=== PATIENT | female | born 1985 | race African-American/Black ===

== ENCOUNTER → 2016-12-18 | Outpatient (REF) | payer OTHER | LOC: M LAB 10:29 | PROVIDERS: ATTEND Nurse Practitioner Adult Health | DX: Z02.1 Encounter for pre-employment examination (principal) ==

== ENCOUNTER 2016-12-20 19:33 | Outpatient (CLI) | payer OTHER, SELFPAY ==
[~2016-12-20] VITALS: Ht 165.1 cm; Wt 70.0 kg
--- NOTE | 2016-12-20 20:40 | IPNPDOC ---
Text Note Date of Service The patient was seen on 12/20/16. NOTE Subjective: Pt is a 31yo with a coombs IUP at 26w2d who presents to triage for abdominal discomfort. She states the pain has been occurring all day, located in her upper abdomen. Sharp, comes and goes. No nausea/vomiting, no diarrhea. ROS: Admits: Gross movement, good oral hydration Denies: Vaginal bleeding/discharge/loss of fluid, fever, N/V, dysuria, urinary urgency, flank pain, sexual activity, abdominal trauma, diarrhea, constipation Objective: Vitals wnl, afebrile NST: FHT 140 with moderate variability, pos accels, neg decels. Reassuring for gestational age. [place]: 1 ctx, no uterine irritability Physical Exam: General: WDWN gravid female in NAD Mental : AAOx3 Abdominal: Gravid abdomen without guarding or tenderness, non-distended Extremity: no edema in LE bilaterally (SCE chaperoned by RN) SCE: closed/long/high Assessment: Pt is a 31yo with a coombs IUP at 26w2d with abdominal pain likely GI in origin (flatus) without signs of an acute abdomen or preeclampsia. No signs of abdominal pathology or infection. No evidence of labor. Reassuring NST with 1ctx, no uterine irritability and SCE closed/long/high. Plan: -pts questions and concerns addressed and answered- labor precautions discussed with patient. -f/u at next scheduled OB appt -Tylenol 325mg 2 tabs po q6h prn pain -encouraged adequate hydration and good nutrition, avoiding foods that cause flatus -Return precautions given for bleeding, fluid loss, contractions, decreased movement, fever, and worsening or spreading of abdominal pain. -[facility] reviewed Dr. Eladio Gupta MD [place] OBPATO VS,Donald, I+O VSDonald, I+O Vital Signs Date Time Temp Pulse Resp B/P Pulse Ox O2 Delivery O2 Flow Rate FiO2 12/20/16 19:55 97.8 69 20 Room Air ELADIO GUPTA MD Dec 20, 2016 20:40
== END 2016-12-20 20:35 | disposition home or self-care (01) ==
LOC: M LDO 19:33
PROVIDERS: ATTEND Obstetrics & Gynecology
DX: O26.892 Other specified pregnancy related conditions, second trimester (principal); Z3A.26 26 weeks gestation of pregnancy

== ENCOUNTER 2017-02-13 20:44 | Outpatient (CLI) | payer OTHER ==
[~2017-02-13] VITALS: Ht 165.1 cm; Wt 73.0 kg
[2017-02-13 21:02] VITALS: BP 115/61
--- NOTE | 2017-02-14 08:29 | HPE ---
DATE OF ADMISSION: 31-year-old 6, para 3, abortio 2, LMP 06/06/2016, EDC 03/27/2017 at 34 weeks with a history of Melbeta [place] for 2 days. PAST HISTORY: In 2004 at 20 weeks had a dilatation and evacuation (D E) and required 2 units of blood. 2009 at 40 weeks spontaneous vaginal delivery female induction of labor 8 pounds 6 ounces. 2013 at 37 and 5 weeks spontaneous vaginal delivery female 8 pounds 1 ounce. 2010 at 11 weeks spontaneous with dilatation and curettage (D C). 2014 at 38 weeks spontaneous vaginal delivery female 6 pounds 11 ounces. Labs show A positive, HIV negative, hepatitis negative. RPR negative, rubella immune. Varicella by history. Pap normal. Urine negative. Gonorrhea and chlamydia are negative. 1-hour glucose was 85. Blood pressure today is 115/61, respirations 18, pulse is 101 and temperature 98.6. Urine is 1015, pH 6, +1 ketones, +1 leukocytes, and trace of protein. On examination she has a category 1 strip with 15 x 15 accelerations, occasional Uriel [place], one contraction in the last 20 minutes, mild in intensity and the resting tone was normal. On pelvic examination no fluid loss, no bleeding, posterior, not dilated, high, thick and closed. The rest of the examination is unremarkable. She is normocephalic, atraumatic. Neck: Full range of motion. Pupils equal and reactive to light. Distal pulses are symmetric. No evidence of deep venous thrombosis (DVT), pulmonary embolism (PE) or superficial phlebitis. Chest is clear bilaterally to bases. No wheezes or rhonchi. Uterus is nontender. Four quadrant bowel sounds and appropriate symphysis fundus height. She has no rashes, lesions or pruritus. No arthralgia, myalgia. No cough, wheeze, shortness of breath or dyspnea on exertion. She has no chest pain. She is not bleeding. Neuro complete. No incontinency, urgency, or frequency. No nausea, vomiting, diarrhea, or constipation. No diabetic issues. GYNECOLOGY HISTORY: Unremarkable. PAST MEDICAL HISTORY: Unremarkable. SURGICAL HISTORY: Dilatation and curettage (D C) times two. FAMILY HISTORY: Noncontributory. She does not smoke or drink, abuse drugs. She is and her is deployed. She comes with her three children with a category 1 strip and not dilated. Precautions were given including increasing her fluid level because of +1 ketones. Urine was sent for culture and sensitivity (C S) as well as micro and if culture positive we will call her back in 48 hours, if culture negative we will not call her back. The patient understands what she needs to do as regarding contractions, fluid increase, and we discussed kick chart, premature rupture of membranes, bleeding and contractions 5-7 minutes lasting 30-60 seconds. She does not have a significant history of labor. The patient was discharged undelivered. Followup next week in the office for her regular appointment. cc: *Randal SINGH
== END 2017-02-13 21:45 | disposition home or self-care (01) ==
LOC: M LDO 20:44
PROVIDERS: ATTEND Obstetrics & Gynecology
DX: O62.0 Primary inadequate contractions (principal); Z3A.34 34 weeks gestation of pregnancy; O09.293 Supervision of pregnancy with other poor reproductive or obstetric history, third trimester

== ENCOUNTER 2017-02-19 00:31 | Outpatient (CLI) | payer OTHER ==
[~2017-02-19] VITALS: Ht 165.1 cm; Wt 75.0 kg
== END 2017-02-19 01:39 | disposition home or self-care (01) ==
LOC: M LDO 00:31
PROVIDERS: ATTEND Obstetrics & Gynecology
DX: O62.0 Primary inadequate contractions (principal); Z3A.34 34 weeks gestation of pregnancy

== ENCOUNTER 2017-02-24 18:17 | Inpatient (IN) | payer OTHER ==
[~2017-02-24] VITALS: Ht 165.1 cm; Wt 72.0 kg
[2017-02-24] MEDS ORDERED: PRENTAB9 PO (18:26)
[2017-02-24 18:30] VITALS: BP 130/69
[2017-02-24] MEDS ORDERED: LACTATED RINGER'S 1000 ML IV STA (21:14)
[2017-02-24] MEDS ORDERED: AMPICILLIN SOD 2 GM in D5W MINI-BAG PLUS 100 ML IV STA (21:14)
[2017-02-24] MEDS: BETAMETHASONE SOLUSPAN 6MG/ML INJ 5ML (J0702) IM SCH (21:50)
[2017-02-24] MEDS: LR 1,000 ML IV SCH (21:50)
[2017-02-24 23:26] LABS: MEAN CORPUSCULAR HEMOGLOBIN 26.6 pg (27.0-33.0); MEAN CORPUSCULAR HGB CONC 32.7 g/dl (32.0-36.5); MEAN CORPUSCULAR VOLUME 81.4 fl (80.0-96.0); RED CELL DISTRIBUTION WIDTH 13.8 % (11.5-14.5); WHITE BLOOD COUNT 7.8 K/mm3 (4.0-10.0)
--- NOTE | 2017-02-24 23:34 | HPEPDOC ---
Obstetrical History & Physical General Date of Admission Feb 24, 2017 at 23:13 History of Present Illness Kelsey is a 32yo with SIUP at 35w4d who presents tonight with regular ctx. She notes she had quick labors in the past and was concerned that she is cristiano. No LOF, no VB. Feels good movement. On initial exam, SCE 0/50/-3 by CHRISTO Rainey. On re-check by me 2hr later, 3-4/50/- 2. Then, on re-check again 2hr later, 3-4/75/-2. PMhx: constipation, hx of PP depression for which she took medications for a short time, sensitivity to amoxicillin (HOLBROOK/vomiting- not a true allergy) course: 2 intra-cardiac echogenic foci on 20wk anatomy scan with normal [place] screen (having a male) Chief Complaint: Contractions, pre-term Information Provided By: Patient Care Care: Good Care Dating Final EDC: Mar 27, 2017 Final EDC by: 1st trimester ([place]) Antepartum Course Diagnos(e)s 2 intra-cardiac echogenic foci on 20wk anatomy scan with normal [place] screen ( having a male) Height (inches): 65 Pre- weight (lbs.): 140 Admission Weight (lbs.): 162 Change in Weight (lbs.): 22 Past Medical History Past Obstetrical History : Past Obstetrical History: Multigravida Date of Delivery: Mar 28, 2010 (Also December 2013 and Jul 2015- all term deliveries) Gestation: 40 (also 37.5wk and 38wk in addition to two early miscarriages, both treated with D&C. Had hemorrhage with D&C in 2004 with transfusion of 2u pRBC) Type of Delivery: Spontaneous Vaginal Del. Sex of Infant: Female (all 3 children are female) Complications: No [employer] History: Spontaneous (x2, both treated with D&C), History of STD ( chlamydia as a teenager) Past Medical History Medical History Constipation, hx of PP depression for which she took medications for a short time, sensitivity to amoxicillin (HOLBROOK/vomiting- not a true allergy) Surgical History: Dilatation and Curettage, [place] teeth Family History Significant Family History: Diabetes Social History Marital Status: Family situation: Spouse/partner deployed (Currently in [place] since November) Psychosocial History: Depression ( depression treated with medication for short duration) * Smoker: non-smoker Alcohol: Denies Drugs: denies Imunizations Tdap status: current Influenza Status: declined Allergies Coded Allergies: No Known Allergies (Unverified , 02/13/17) Medications Scheduled Multivitamins/ ( 27-0.8 mg) 1 Tab Tab, 1 TAB PO DAILY Physical Examination Physical Examination GENERAL: Alert and oriented times three. ABDOMEN: Gravid and non-tender to touch. FETUS: Is vertex (VTX) by sterile vaginal examination (SVE) EXTREMITIES: No edema of BLE Vital Signs/I&O Vital Signs Date Time Temp Pulse Resp B/P (MAP) Pulse Ox O2 Delivery O2 Flow Rate FiO2 02/24/17 18:30 99.1 77 18 130/69 (89) Pertinent Laboratoy Data Blood Type: A+ RBC Antibody Screen: Negative HIV: Negative Hepatitis B: Negative Hepatitis C: Unknown Rapid Plasma Reagin: Nonreactive Rubella: Immune Varicella: Immune Chlamydia/Gonorrhea: Negative Group B Streptococcus: Unknown Cystic Fibrosis: Negative Glucose Tolerance Test: 85 Anatomy Ultrasound Ultrasound Date: Nov 11, 2016 Placenta Location: Posterior Normal Anatomy: Yes (Noted 2 echogenic foci in heart, normal [place]) Placenta Previa: No Steroid Therapy Steroid Therapy: Yes Date #1: Feb 24, 2017 Vaginal Examination Dilation: 4 cm Effacement: 75% Station: -2 Cervical Consistency: Soft Cervical Position: Middle Presentation: Cephalic presentation Assessment Variability: Moderate Accelerations: Positive Decelerations: None Tocometer Contractions: Yes Frequency: regular, every 2-5 min. Duration: greater than 60 seconds Assessment/Plan Assessment Kelsey is a 32yo with SIUP at 35w4d in latent labor. On initial exam, SCE 0/50/-3 by CHRISTO Rainey. On re-check by me 2hr later, 3-4/50/-2. Then, on re-check again 2hr later, 3-4/75/-2. Cat I FHRT, toco showed ctx q2- 3min then after IVF slowed to q5min. Vitals wnl. Cephalic by SCE. No ROM. PMhx: constipation, hx of PP depression for which she took medications for a short time, sensitivity to amoxicillin (HOLBROOK/vomiting- not a true allergy) course: 2 intra-cardiac echogenic foci on 20wk anatomy scan with normal [place] screen (having a male) Plan Admit and orient. [employer] and consent. Diet: ok for regular meal now, then clear liquids Betamethasone 12mg IM now Group B Streptococcus (GBS) unknown and , so ampicillin per protocol 2/ Labs and intravenous (IV) per unit protocol. Lactated Ringers (LR): Bolus 1000 mL, then at 125 mL/hr. Will not actively manage since but given hx of fast labors, anticipate she will have quick labor once labor becomes active Dr. Eladio Gupta MD [place]ADIO Vera MD Feb 24, 2017 23:34
[2017-02-24 23:38] VITALS: BP 130/61
[2017-02-25] VITALS (7 sets, daily range): BP systolic 108–132; BP diastolic 53–65
[2017-02-25] MEDS: AMPICILLIN SOD 1 GM in D5W MINI-BAG PLUS 50 ML IV SCH ×5 (03:41→19:56)
--- NOTE | 2017-02-25 06:27 | IPNPDOC ---
Text Note Date of Service The patient was seen on 02/25/17. NOTE Patient uncomfortable with contractions though they have spaced to q5min. SCE now /-2. Not yet active labor, will not actively manage since and want to give betamethasone as much time to act for FLM as possible. Some bloody show on exam glove. Bulging bag. Cat I FHRT. Patient desires pain relief. Will do IV stadol for now. Continue to monitor. Dr. Eladio Gupta MD VS,Donald, I+O VS, Donald, I+O Laboratory Tests 02/24/17 21:45 Red Blood Count 4.13, Mean Corpuscular Volume 81.4, Mean Corpuscular Hemoglobin 26.6 L, Mean Corpuscular Hemoglobin Concent 32.7, Red Cell Distribution Width 13.8 Vital Signs Date Time Temp Pulse Resp B/P (MAP) Pulse Ox O2 Delivery O2 Flow Rate FiO2 02/24/17 23:38 82 130/61 (84) 02/24/17 18:30 99.1 18 ELADIO GUPTA MD Feb 25, 2017 06:27
[2017-02-25] MEDS ORDERED: BUTORPHANOL 2 MG/ML INJ (J0595) IV PRN (06:30)
[2017-02-25] MEDS ORDERED: PROMETHAZINE INJ 25 MG/ML VIAL (J2550) IV ONE (06:30)
[2017-02-25] MEDS: LR 1,000 ML IV SCH ×2 (06:42→19:56)
[2017-02-25] MEDS: BETAMETHASONE SOLUSPAN 6MG/ML INJ 5ML (J0702) IM SCH (21:56)
[2017-02-26] VITALS (15 sets, daily range): BP systolic 110–142; BP diastolic 53–62
[2017-02-26] MEDS: AMPICILLIN SOD 1 GM in D5W MINI-BAG PLUS 50 ML IV SCH ×2 (03:20→03:22)
[2017-02-26] MEDS: LR 1,000 ML IV SCH ×2 (03:21→07:04)
[2017-02-26] MEDS ORDERED: PROMETHAZINE INJ 25 MG/ML VIAL (J2550) IV ONE (04:45)
[2017-02-26] MEDS ORDERED: NALBUPHINE HCL 10 MG/ML AMP (J2300) IV ONE (04:45)
[2017-02-26] MEDS ORDERED: OXYTOCIN 30 UNITS IN 0.9% NaCl 500ML IV BAG (J2590) As Ordered ONE (06:13)
[2017-02-26] MEDS ORDERED: FENTANYL 2MCG/ML ROPIVACAINE 0.2% IN 0.9% NACL 200ML IVBAG As Ordered ONE (06:14)
[2017-02-26] MEDS ORDERED: OXYTOCIN DRIP 30 UNITS in APPROPRIATE DILUENT 1 EA IV SCH (07:35)
[2017-02-26] MEDS ORDERED: DOCUSATE SODIUM 100 MG CAP PO PRN (07:45)
[2017-02-26] MEDS ORDERED: DIBUCAINE 1% OINTMENT 30GM TOP PRN (07:45)
[2017-02-26] MEDS ORDERED: ONDANSETRON 4MG/2ML VIAL (J2405) IV PRN ×2 (07:45→08:00)
[2017-02-26] MEDS ORDERED: METHYLERGONOVINE MALEATE 0.2 MG TAB PO PRN (07:45)
[2017-02-26] MEDS ORDERED: MEASLES,MUMPS,RUBELLA VACCINE INJ (MMR-II) (90707) SC SCH (07:45)
[2017-02-26] MEDS ORDERED: PROMETHAZINE 25 MG TAB PO PRN (07:45)
[2017-02-26] MEDS ORDERED: ACETAMINOPHEN 500 MG TAB PO PRN (07:45)
[2017-02-26] MEDS ORDERED: RHOGAM 300 MCG (1500 IU) INJ (J2790) IM SCH (07:45)
[2017-02-26] MEDS ORDERED: LACTATED RINGER'S 1000 ML IV PRN (08:00)
[2017-02-26] MEDS ORDERED: EPIDURAL/PCA KEYS XX PRN (08:00)
[2017-02-26] MEDS ORDERED: EPIDURAL COMMENT XX SCH (08:00)
[2017-02-26] MEDS ORDERED: ePHEDrine SULFATE 25 MG/5 ML(5MG/ML) SYRINGE IV PRN (08:00)
[2017-02-26] MEDS ORDERED: NALOXONE INJ 0.4 MG/1 ML VIAL (J2310) IV PRN (08:00)
[2017-02-26] MEDS ORDERED: FENTANYL/ROPIVACAINE/NACL BAG 200 ML EPIDURAL SCH (08:00)
[2017-02-26] MEDS ORDERED: diphenhydrAMINE INJ 50MG/ML VIAL (J1200) IV PRN (08:00)
[2017-02-26] MEDS ORDERED: REFRIGERATOR IV KEYS XX PRN (08:00)
[2017-02-26] MEDS: PRENATAL VITAMIN TAB PO SCH (11:03)
[2017-02-26] MEDS: IBUPROFEN 800 MG TAB PO PRN (16:40)
[2017-02-27 05:43] VITALS: BP_SYST 128; BP_SYST 134; BP_DIAS 60; BP_DIAS 63
[2017-02-27] MEDS ORDERED: IBUP-1114 PO (08:38)
[2017-02-27] MEDS ORDERED: ACET50TA PO (08:38)
[2017-02-27] MEDS: PRENATAL VITAMIN TAB PO SCH (08:49)
[2017-02-27] MEDS: IBUPROFEN 800 MG TAB PO PRN (08:49)
--- NOTE | 2017-02-27 09:52 | IPNPDOC ---
Progress Note Date of Service The patient was seen on 02/27/17 at 09:50. Progress Note PPD 1 Kelsey is a 32y/o [id number] s/p uncomplicated after presenting in labor at 35w5d. She is doing well. Tolerating regular diet, voiding without problem. Reports minimal lochia and breast feeding without issues. Desires BTL for contraception. O: Vitals wnl, afebrile General: A&Ox3, NAD Abdomen: Fundus firm @ U-2cm, soft, non-tender Extremities: no pain with palpation of calves A/P: Kelsey is a 32y/o [id number] s/p uncomplicated after presenting in labor at 35w5d. Vitals wnl, benign exam. Hemodynamically stable with no e/o infection. -Discharge to home today vs boarding status if baby needs to stay -Follow up in clinic for 6wk PP visit, will discuss BTL at that time -Return precautions discussed for fevers/chills, increasing abdominal pain, heavy vaginal bleeding, foul smelling discharge, redness/pain of breasts -Home meds: motrin and tylenol Eladio Gupta MD [facility] VS, I&O, 24H, Fishbone Vital Signs/I&O Vital Signs Date Time Temp Pulse Resp B/P (MAP) Pulse Ox O2 Delivery O2 Flow Rate FiO2 02/27/17 05:43 98.3 71 16 134/63 (86) 02/25/17 06:43 Room Air I&O- Last 24 Hours up to 6 AM 02/27/17 06:00 Output Total 500 ml Balance -500 ml ELADIO GUPTA MD Feb 27, 2017 09:52
== END 2017-02-27 18:45 | disposition home or self-care (01) | DRG 775 ==
LOC: M LDO 18:17 → M LDI 23:13 → M OBS 02-26 11:37
PROVIDERS: ADMIT Advanced Practice Midwife; ATTEND Student in an Organized Health Care Education/Training Program
PROC: 10E0XZZ Delivery of Products of Conception, External Approach (ICD-10-PCS; principal; 2017-02-26)
PROC: 10907ZC Drainage of Amniotic Fluid, Therapeutic from Products of Conception, Via Natural or Artificial Opening (ICD-10-PCS; 2017-02-26)
DX: O60.14X0 Preterm labor third trimester with preterm delivery third trimester, not applicable or unspecified (principal); Z3A.35 35 weeks gestation of pregnancy; Z37.0 Single live birth

== ENCOUNTER 2017-06-02 06:56 | Day surgery (SDC) | payer OTHER ==
[~2017-06-02] VITALS: Ht 165.1 cm; Wt 66.7 kg
[~2017-06-02 06:56] MED LIST: ACET50TA PO; IBUP-1114 PO; LR 1,000 ML IV SCH; PRENTAB9 PO; PROZ10CA7 PO; [UNRECOGNIZED DRUG - REMARK] PO
[2017-06-02 07:15] LABS: MEAN CORPUSCULAR HEMOGLOBIN 28.1 pg (27.0-33.0); MEAN CORPUSCULAR HGB CONC 33.3 g/dl (32.0-36.5); MEAN CORPUSCULAR VOLUME 84.4 fl (80.0-96.0); RED CELL DISTRIBUTION WIDTH 14.5 % (11.5-14.5); WHITE BLOOD COUNT 4.3 K/mm3 (4.0-10.0)
[2017-06-02] MEDS ORDERED: BUPIVACAINE HCL 0.25% 30 ML VIAL As Ordered ONE (07:18)
[2017-06-02] MEDS ORDERED: LIDOCAINE 2% INJ 100 MG/5 ML SDV (FOR ANES.) As Ordered ONE (07:20)
[2017-06-02] MEDS ORDERED: GLYCOPYRROLATE INJ 0.2 MG/ML 2 ML VIAL As Ordered ONE (07:20)
[2017-06-02] MEDS ORDERED: NEOSTIGMINE 1MG/ML 5 ML SYRINGE (J2710) As Ordered ONE (07:20)
[2017-06-02] MEDS ORDERED: PROPOFOL 200 MG/20 ML VIAL As Ordered ONE (07:20)
[2017-06-02] MEDS ORDERED: ROCURONIUM BROMIDE 50 MG/5 ML VIAL/SYRINGE As Ordered ONE (07:20)
[2017-06-02] MEDS ORDERED: ONDANSETRON 4MG/2ML VIAL (J2405) As Ordered ONE (07:21)
[2017-06-02] MEDS ORDERED: MIDAZOLAM INJ 2 MG/2 ML VIAL (J2250) As Ordered ONE (07:24)
[2017-06-02] MEDS ORDERED: fentaNYL 100 MCG/2 ML INJECTION (J3010) As Ordered ONE (07:24)
[2017-06-02 07:39] LABS: CONTROL LINE HCG INT CTR LINE PRESENT
[2017-06-02] MEDS ORDERED: dexameTHASONE 4 MG/ML 1ML VIAL (J1100) As Ordered ONE (08:11)
[2017-06-02] MEDS ORDERED: SUGAMMADEX SODIUM 500 MG/5 ML VIAL (BRIDION) As Ordered ONE (08:33)
[2017-06-02] MEDS ORDERED: SILVER NITRATE APPLICATOR As Ordered ONE (08:34)
[2017-06-02] MEDS ORDERED: PERCOCET 5MG/325MG TAB PO PRN (09:15)
[2017-06-02] MEDS ORDERED: HYDROmorphone HCL 1 MG/ML SYRINGE (J1170) IV PRN (09:15)
[2017-06-02] MEDS ORDERED: LR 1,000 ML IV SCH (09:15)
[2017-06-02] MEDS ORDERED: fentaNYL 100 MCG/2 ML INJECTION (J3010) IV PRN (09:15)
[2017-06-02] MEDS ORDERED: ONDANSETRON 4MG/2ML VIAL (J2405) IV PRN (09:15)
[2017-06-02 13:00] VITALS: BP 116/56
--- NOTE | 2017-06-02 13:26 | RO ---
DATE OF OPERATION: 06/02/2017 SURGEON: Will Galaviz MD PHYSICAL CHEMIST: Tabatha Mcnulty MD PREOPERATIVE DIAGNOSES: Undesired fertility, satisfied parity. POSTOPERATIVE DIAGNOSES: Undesired fertility, satisfied parity. ANESTHESIA: General endotracheal. ESTIMATED BLOOD LOSS: 50 mL. DRAINS: None, 30 mL of urine with prep via in-and-out catheterization. FLUIDS REPLACED: 750 mL of lactated Ringer. OPERATIVE PROCEDURE: Laparoscopic bilateral salpingectomy. PREOPERATIVE ANTIBIOTICS: None. SPECIMENS REMOVED: Bilateral fallopian tubes. FINDINGS: Normal upper and lower abdomen and pelvis, including all organs. INDICATION FOR PROCEDURE: The patient was done having children, has a large family of four children, and declined all other methods of permanent and/or hormonal contraception. Informed consent was obtained 1-2 weeks prior to the surgery, and the patient desired to proceed on the morning of the procedure. Her laboratories were all normal on the day of surgery. DESCRIPTION OF OPERATION: The patient was taken to the operating room with an IV in place and placed in the low lithotomy position without difficulty after general endotracheal anesthesia was obtained, also without difficulty. I then examined her. Anesthesia was performed, which was normal. She was then prepped and draped in normal sterile fashion. A speculum was placed into the vagina, and a tenaculum was placed on the anterior lip of the cervix, and a Fuentes cannula was placed into the cervix and attached to the tenaculum. An in-and-out catheterization was then done with approximately 30 mL of urine prior to proceeding with the laparoscopy. The patient was then flattened out, dropped down to waist level, and infraumbilical site was injected with approximately 3 mL of 0.25% Marcaine. A small 5 mm incision was performed, the abdomen wall was tented up; and using a 5 mm trocar, the camera and trocar were inserted into the abdominal cavity under direct visualization without difficulty. Low-flow carbon dioxide was hooked up. It confirmed intraabdominal placement, and high-flow was started. We placed the patient in slight Trendelenburg and did a quick survey of the lower pelvis and upper abdomen, and all appeared normal, including fallopian tubes, ovaries, liver edge, stomach edge, and uterus. A right lower quadrant 5 mm trocar was then placed under direct visualization with Marcaine bath prior. This was repeated on the left without difficulty. We then placed a LigaSure device and grasper, then elevated each fallopian tube, and transected the fallopian tube along the mesosalpinx to the cornu of the uterus. This was done without difficulty and without any blood loss or complication. Each fallopian tube was then removed through the right lower quadrant port under direct visualization and a full documentation was performed of the completed salpingectomy. As much CO2 was allowed to escape as possible. All three trocars were removed under direct visualization. Dermabond was used to close each 5 mm trocar site. I then went below and removed the Fuentes cannula and tenaculum. There was a small amount of bleeding at the anterior lip that I could not stop with pressure. Therefore, a Bovie cautery was used to obtain hemostasis from the anterior lip of the cervix. This was done without difficulty, and the patient was awakened from general anesthesia shortly thereafter with all counts correct. She was transferred to the postanesthesia care unit (PACU) in stable condition. ARIK
== END 2017-06-02 13:00 | disposition home or self-care (01) ==
LOC: M SDC 06:56
PROVIDERS: ATTEND Obstetrics & Gynecology
DX: Z30.2 Encounter for sterilization (principal); F32.9 Major depressive disorder, single episode, unspecified; F41.9 Anxiety disorder, unspecified; G43.909 Migraine, unspecified, not intractable, without status migrainosus; R06.83 Snoring; Z79.899 Other long term (current) drug therapy
CPT/HCPCS: 36415; 58661; 84703; 85027; 86850; 86900; 86901; 88302; J1100; J2250; J2405; J3010

== ENCOUNTER → 2017-06-23 | Outpatient (REF) | payer OTHER ==
[~2017-06-23] MED LIST changes: -LR 1,000 ML IV SCH
== END ==
LOC: M SFHCLERA 12:01
PROVIDERS: ATTEND Nurse Practitioner Family
DX: N88.9 Noninflammatory disorder of cervix uteri, unspecified (principal)

== ENCOUNTER 2017-11-05 18:15 | Emergency (ER) | payer OTHER ==
[2017-11-05 19:29] LABS: HEMATOCRIT 30.3 % (36.0-47.0); HEMOGLOBIN 9.4 g/dl (12.0-16.0); MEAN CORPUSCULAR HEMOGLOBIN 25.3 pg (27.0-33.0); MEAN CORPUSCULAR VOLUME 81.5 fl (80.0-96.0); PLATELET COUNT, AUTOMATED 345 10^3/uL (150-450); RED BLOOD COUNT 3.72 10^6/uL (4.00-5.40); RED CELL DISTRIBUTION WIDTH 12.3 % (11.5-14.5); WHITE BLOOD COUNT 7.2 10^3/uL (4.0-10.0)
[2017-11-05 20:34] LABS: CONTROL LINE HCG INT CTR LINE PRESENT; HCG, SERUM QUALITATIVE NEGATIVE (NEGATIVE)
[2017-11-05] MEDS: NS 1,000 ML IV (20:37)
[2017-11-05] MEDS: KETOROLAC 30 MG/ML VIAL (J1885) IV (20:38)
[2017-11-05 20:46] LABS: ANION GAP 8 MEQ/L (8-16); BLOOD UREA NITROGEN 11 MG/DL (7-18); CALCIUM LEVEL 8.8 MG/DL (8.5-10.1); CARBON DIOXIDE LEVEL 28 MEQ/L (21-32); CHLORIDE LEVEL 104 MEQ/L (98-107); CREATININE FOR GFR 0.71 MG/DL (0.55-1.30); FERRITIN 3 NG/ML (8-252); GLOMERULAR FILTRATION RATE > 60.0 (>60); GLUCOSE, FASTING 116 MG/DL (70-100); IRON (FE) 24 UG/DL (50-170); PERCENT SATURATION 5.3 % (13.2-45.0); POTASSIUM SERUM 4.1 MEQ/L (3.5-5.1); SODIUM LEVEL 140 MEQ/L (136-145); TOTAL IRON BINDING CAPACITY 453 UG/DL (250-450)
== END 2017-11-05 21:42 | disposition home or self-care (01) ==
LOC: M ED 18:15
DX: N92.0 Excessive and frequent menstruation with regular cycle (principal); D64.9 Anemia, unspecified; Z79.3 Long term (current) use of hormonal contraceptives
CPT/HCPCS: J1885

== ENCOUNTER 2017-12-26 10:58 | Emergency (ER) | payer OTHER | END 2017-12-26 11:50 | disposition home or self-care (01) | LOC: M ED 10:58 | DX: M62.830 Muscle spasm of back (principal); R10.30 Lower abdominal pain, unspecified; R07.89 Other chest pain; V49.40XA Driver injured in collision with unspecified motor vehicles in traffic accident, initial encounter; Y92.410 Unspecified street and highway as the place of occurrence of the external cause | CPT/HCPCS: 99282 ==

== ENCOUNTER 2018-01-05 11:14 | Day surgery (SDC) | payer OTHER ==
[2018-01-05 11:54] LABS: HEMATOCRIT 32.8 % (36.0-47.0); HEMOGLOBIN 9.7 g/dl (12.0-15.5)
[2018-01-05] MEDS ORDERED: LR 1,000 ML IV ×2 (12:00→17:45)
[2018-01-05 12:08] LABS: CONTROL LINE HCG INT CTR LINE PRESENT; HCG, SERUM QUALITATIVE NEGATIVE (NEGATIVE)
[2018-01-05] MEDS ORDERED: dexameTHASONE 4 MG/ML 1ML VIAL (J1100) As Ordered (16:29)
[2018-01-05] MEDS ORDERED: ONDANSETRON 4MG/2ML VIAL (J2405) As Ordered (16:29)
[2018-01-05] MEDS ORDERED: MIDAZOLAM INJ 2 MG/2 ML VIAL (J2250) As Ordered (16:29)
[2018-01-05] MEDS ORDERED: fentaNYL 100 MCG/2 ML INJECTION (J3010) As Ordered (16:29)
[2018-01-05] MEDS ORDERED: PROPOFOL 200 MG/20 ML VIAL As Ordered (16:29)
[2018-01-05] MEDS ORDERED: LIDOCAINE 2% INJ 100 MG/5 ML SDV (FOR ANES.) As Ordered (16:29)
[2018-01-05] MEDS ORDERED: KETOROLAC 60 MG/2 ML VIAL (J1885) As Ordered (16:35)
[2018-01-05] MEDS: SILVER NITRATE APPLICATOR As Ordered (17:13)
[2018-01-05] MEDS ORDERED: ONDANSETRON 4MG/2ML VIAL (J2405) IV (17:45)
[2018-01-05] MEDS ORDERED: fentaNYL 100 MCG/2 ML INJECTION (J3010) IV (17:45)
[2018-01-05] MEDS ORDERED: PERCOCET 5MG/325MG TAB PO (17:45)
== END 2018-01-05 19:21 | disposition home or self-care (01) ==
LOC: M SDC 11:14
DX: N93.9 Abnormal uterine and vaginal bleeding, unspecified (principal); N94.6 Dysmenorrhea, unspecified; N92.0 Excessive and frequent menstruation with regular cycle; D50.0 Iron deficiency anemia secondary to blood loss (chronic); Z79.899 Other long term (current) drug therapy
CPT/HCPCS: 58563